=== PATIENT | female | born 1950 | race Caucasian/White ===

== ENCOUNTER 2016-12-12 07:47 | Day surgery (SDC) | payer MEDICARE ==
[2016-12-12] VITALS (9 sets, daily range): BP systolic 93–167; BP diastolic 43–74; PULSE 54–74; RESP 18–20; TEMP 98–98.2; O2SAT 95–98
[~2016-12-12] VITALS: Ht 172.7 cm; Wt 76.4 kg
[~2016-12-12 07:47] MED LIST: LEVO.1 PO; METO25 PO; PANT20 PO
[2016-12-12] MEDS ORDERED: VITA2000 PO (08:12)
[2016-12-12] MEDS ORDERED: VITATAB11 PO (08:12)
[2016-12-12] MEDS ORDERED: FLAX100013 PO (08:12)
[2016-12-12] MEDS ORDERED: NEXI40CA PO (08:12)
[2016-12-12] MEDS ORDERED: LACTCAP8 PO (08:12)
[2016-12-12] MEDS ORDERED: METO25TA3 PO (08:12)
[2016-12-12] MEDS ORDERED: LEVO.1 PO (08:12)
[2016-12-12] MEDS ORDERED: SODIUM CHLORIDE 0.9% FLUSH 10 ML FLUSH IV FLUSH PRN (08:15)
[2016-12-12] MEDS ORDERED: SODIUM CHLOR 0.9% 1000 ML IV SCH (08:15)
[2016-12-12] MEDS ORDERED: SODIUM CHLORIDE 0.9% FLUSH 10 ML FLUSH IV FLUSH SCH (09:00)
[2016-12-12] MEDS ORDERED: MIDAZOLAM HCL 2 MG/2 ML VIAL ONE (09:59)
--- NOTE | 2016-12-12 10:18 | PD.RAD ---
Post CT Procedure Prog Note Pre Procedure Diagnosis: (1) Fatty liver Post Procedure Diagnosis: (1) Fatty liver Procedure Date: Dec 12, 2016 Supervising Radiologist: Johann Boyce Anesthesia: Local, Conscious Sedation Plan of Activity Patient to Unit: [facility] Patient Condition: Good Additional Comments: PT. S/P CT guided biopsy of the liver. Single 18 ga core sample taken. Follow up CT unremarkable. See PACS Report for procedural detail/treatment Johann Boyce MD Dec 12, 2016 10:18
--- NOTE | 2016-12-12 15:06 | RADRPT ---
EXAM DATE/TIME: 12/12/2016 10:02 [place] COMPARISON: No previous studies available for comparison. INDICATIONS : Fatty liver. SEDATION TIME: 6 minutes BIOPSY SITE: Right liver MEDICATION(S): 1.) 2 mg midazolam (Versed) IV 2.) 100 mcg fentanyl (Sublimaze) IV DEVICE(S): 1.) 18 gauge Temno core biopsy needle 6cm MEDICAL HISTORY : Hypertension. SURGICAL HISTORY : None. ENCOUNTER: Initial ACUITY: 1 day PAIN SCORE: 0/10 LOCATION: Right lateral A core specimen(s) were obtained and sent to the laboratory for pathologic evaluation. PROCEDURE: 1. CT guided liver biopsy. 2. Conscious sedation with continuous EKG and oximetry monitoring. Prior to the procedure informed consent was obtained. Any appropriate prior imaging studies were rev iewed. Using automated exposure control and adjustment of the mA and/or kV according to patient size, radiat ion dose was kept as low as reasonably achievable to obtain optimal diagnostic quality images. DICOM format image data is available electronically for review and comparison. The site was prepped in a sterile fashion. Full sterile technique was used, including cap, mask, gurdeep rile gloves and gown and a large sterile sheet. Hand hygiene and 2% chlorhexidine and/or betadine/al cohol prep was utilized per protocol for cutaneous antisepsis. The skin and subcutaneous tissues wer e infiltrated with local anesthetic solution. With CT guidance the previously identified target was localized. Biopsy was performed using the presc ribed needle as above. Adequate hemostasis was obtained with compression at the puncture site. Follow-up CT scan reveals no hemorrhage. The patient tolerated the procedure well and there were no complications. The patient was returned to the Radiology Outpatient Unit in stable condition. CONCLUSION: Uncomplicated CT guided biopsy. Johann Boyce MD on December 12, 2016 at 15:04 Board Certified Radiologist. This report was verified electronically.
== END 2016-12-12 14:30 | disposition home or self-care (01) ==
LOC: HRAD 07:47 → HRIP 07:48 → HRAD 14:30
PROVIDERS: ATTEND Internal Medicine Gastroenterology
DX: K76.0 Fatty (change of) liver, not elsewhere classified (principal); I10 Essential (primary) hypertension
CPT/HCPCS: 47000; 77012; 88307; 88313; J2250; J3010; J7030